=== PATIENT | male | born 1985 | race Caucasian/White ===

== ENCOUNTER 2017-09-16 14:04 | Emergency (ER) | payer MEDICAID ==
[~2017-09-16] VITALS: Ht 180.3 cm; Wt 77.3 kg
[2017-09-16 14:08] VITALS: Ht 180.3 cm; Wt 77.3 kg
[2017-09-16] MEDS ORDERED: FLAGYL500 MG PO (14:11)
[2017-09-16] MEDS ORDERED: ZITHROMAX500 MG PO (14:12)
[2017-09-16] MEDS ORDERED: BACTRIM DS TABL1 TAB PO (14:12)
[2017-09-16] MEDS ORDERED: SYNTHROID200 MC1 PO (14:13)
[2017-09-16] MEDS ORDERED: MINOCIN100 MG PO (14:53)
[2017-09-16] MEDS ORDERED: HYDROCODONE-APA1 TAB PO (14:55)
[2017-09-16 15:07] LABS: BASOPHILS 0.6 % (0-2); EOSINOPHILS 0.8 % (0-7); HEMATOCRIT 41.3 % (42.0-54.0); HEMOGLOBIN 14.6 g/dL (13.5-17.5); IMMATURE GRANULOCYTES 0.3 % (0-5); LYMPHOCYTES 39.7 % (15-50); MCH 31.1 pg (26.0-34.0); MCHC 35.4 g/dL (31.0-37.0); MCV 88.1 fL (80.0-100.0); MEAN PLATELET VOLUME 9.2 fL (7.4-10.4); MONOCYTES 15.5 % (2-11); NEUTROPHILS 43.1 % (40-80); PLATELET COUNT 252 10x3/uL (130-400); RBC 4.69 10x6/uL (4.20-6.10); RDW 13.2 % (11.5-14.5); WBC 6.7 10x3/uL (4.8-10.8)
[2017-09-16 15:55] VITALS: BP 147/87
== END 2017-09-16 15:19 | disposition home or self-care (01) ==
LOC: D.ER 14:04
PROVIDERS: Emergency Medicine
DX: L03.113 Cellulitis of right upper limb (principal); M79.641 Pain in right hand; F17.200 Nicotine dependence, unspecified, uncomplicated